=== PATIENT | female | born 1975 | race Caucasian/White ===

== ENCOUNTER 2017-01-10 14:29 | Emergency (ER) | payer BC ==
--- NOTE | 2017-01-10 15:14 | ERPHSYRPT ---
- History of Present Illness Time Seen by Provider: 01/10/17 15:08 Historian: patient Patient Subjective Stated Complaint: pt states around 1230 she began having right flank pain that has radiated to right pelvis. pt denies any dysuria. Triage Nursing Assessment: pt pink, warm, dry. abdomen soft nontender. pt afebrile. Physician History: The patient is a 40-year-old female with her mother complaining of right sided abdominal pain that began 15 minutes after eating a baked potato that was loaded with "everything" that included sour cream cheese and ham. The pain has been coming in waves. When it first began it was a 10 out of 10. At times it makes her nauseated. She had a bowel movement to see if it would relieve the pain but it did not. She has no history of kidney stones. Last year she had viral hepatitis. Her abdominal surgeries include a tubal ligation. Timing/Duration: today, hour(s) (3) Activities at Onset: none Quality: stabbing Abdominal Pain Onset Location: RUQ, RLQ Pain Radiation: groin Severity of Pain-Max: severe Severity of Pain-Current: moderate Modifying Factors: Improves With: eating (pain began after eating) Associated Symptoms: nausea Previous symptoms: no prior history Allergies/Adverse Reactions: No Known Drug Allergies Allergy (Unverified 01/10/17 14:45) Home Medications: No Reportable Medications [No Reported Medications] 01/10/17 [History] Hx Tetanus, Diphtheria Vaccination/Date Given: Yes (unknown) Hx Influenza Vaccination/Date Given: No Hx Pneumococcal Vaccination/Date Given: No Immunizations Up to Date: Yes - Review of Systems Constitutional: No Fever, No Chills Eyes: No Symptoms Ears, Nose, & Throat: No Symptoms Respiratory: No Cough, No Dyspnea Cardiac: No Chest Pain, No Edema, No Syncope Abdominal/Gastrointestinal: Abdominal Pain, Nausea Genitourinary Symptoms: No Dysuria Musculoskeletal: No Back Pain, No Neck Pain Skin: No Rash Neurological: No Dizziness, No Focal Weakness, No Sensory Changes Psychological: No Symptoms Endocrine: No Symptoms Hematologic/Lymphatic: No Symptoms Immunological/Allergic: No Symptoms All Other Systems: Reviewed and Negative - Past Medical History Pertinent Past Medical History: Yes Other Medical History: viral hepatitis - Past Surgical History Past Surgical History: Yes Female Surgical History: Tubal Ligation Other Surgical History: fatty tumor removal - Social History Smoking Status: Never smoker Exposure to second hand smoke: No Drug Use: none Patient Lives Alone: No - Female History Hx Last Menstrual Period: end nov 2016 - Nursing Vital Signs Nursing Vital Signs: Initial Vital Signs Temperature 99.0 F Temperature Source Oral Pulse Rate 71 Respiratory Rate 18 Blood Pressure [Right Arm] 124/57 Pain Intensity 1 - Physical Exam General Appearance: moderate distress Eye Exam: PERRL/EOMI, eyes nml inspection Ears, Nose, Throat Exam: normal ENT inspection, pharynx normal, moist mucous membranes Neck Exam: normal inspection, non-tender, supple, full range of motion Respiratory Exam: normal breath sounds, lungs clear, No respiratory distress Cardiovascular Exam: regular rate/rhythm, normal heart sounds Gastrointestinal/Abdomen Exam: tenderness (RLQ and RUQ) Pelvic Exam: not done Rectal Exam: not done Back Exam: normal inspection, normal range of motion, No CVA tenderness, No vertebral tenderness Extremity Exam: normal inspection, normal range of motion, pelvis stable Neurologic Exam: alert, oriented x 3, cooperative, normal mood/affect, nml cerebellar function, sensation nml, No motor deficits Skin Exam: normal color, warm, dry SpO2 Interpretation: normal SpO2: 99 Oxygen Delivery: Room Air - CT Exams Abdomen/Pelvis CT Interpretation: Tele-radiologist Report, Other (3 to 4 mm stone in bladder and mild right sided hydronephrosis consistent with recent passagae of stone.) Ordered Tests: Active Orders 24 hr Category Date Time Status IV Insertion STAT Care 01/10/17 15:16 Active ABDOMEN AND PELVIS W/0 CONTRAS [CT] Stat Exams 01/10/17 16:03 Completed CBC W DIFF Stat Lab 01/10/17 15:30 Completed CMP Stat Lab 01/10/17 15:30 Completed HCG QUALITATIVE,SERUM Stat Lab 01/10/17 15:30 Completed LIPASE Stat Lab 01/10/17 15:30 Completed TROPONIN Stat Lab 01/10/17 15:30 Completed UA W/ MICROSCOPIC Stat Lab 01/10/17 15:10 Completed Medication Summary Discontinued Medications Generic Name Dose Route Start Last Admin Trade Name Freq PRN Reason Stop Dose Admin Sodium Chloride 1,000 mls @ 999 mls/hr 01/10/17 15:16 01/10/17 15:25 Sodium Chloride 0.9% 1000 Ml IV 01/10/17 16:16 999 mls/hr .Q1H1M STA Administration Sodium Chloride Confirm 01/10/17 15:22 Sodium Chloride 0.9% 1000 Ml Administered 01/10/17 15:23 Dose 1,000 mls @ ud .ROUTE .STK-MED ONE Ketorolac Tromethamine 30 mg 01/10/17 15:16 01/10/17 15:25 Toradol 30 Mg Injection IV 01/10/17 15:17 30 mg STAT ONE Administration Ketorolac Tromethamine Confirm 01/10/17 15:22 Toradol 30 Mg Injection Administered 01/10/17 15:23 Dose 30 mg .ROUTE .STK-MED ONE Ondansetron HCl 4 mg 01/10/17 15:16 01/10/17 15:25 Zofran 4 Mg/2 Ml Vial IV 01/10/17 15: 4 mg STAT ONE Administration Ondansetron HCl Confirm 01/10/17 15:22 Zofran 4 Mg/2 Ml Vial Administered 01/10/17 15:23 Dose 4 mg .ROUTE .STK-MED ONE Lab/Rad Data: Laboratory Result Diagrams 01/10/17 15:30 01/10/17 15:30 Laboratory Results 01/10/17 01/10/17 01/10/17 Range/Units 15:30 15:30 15:30 WBC 7.8 (4.0-10.5) K/mm3 RBC 3.77 L (4.1-5.4) M/mm3 Hgb 12.0 (12.0-16.0) gm/dl Hct 36.1 (35-47) % MCV 95.8 (78-100) fl MCH 31.8 (26-32) pg MCHC 33.2 (32-36) g/dl RDW 12.5 (11.5-14.0) % Plt Count 315 (150-450) K/mm3 MPV 10.0 H (6-9.5) fl Gran % 61.9 (36.0-66.0) % Lymphocytes % 27.1 (24.0-44.0) % Monocytes % 8.1 (0.0-12.0) % Eosinophils % 2.8 (0.00-5.0) % Basophils % 0.1 (0.0-0.4) % Basophils # 0.01 (0-0.4) Sodium 139 (136-145) mEq/L Potassium 3.8 (3.5-5.1) mEq/L Chloride 104 (98-107) mEq/L Carbon Dioxide 27.4 (21-32) mEq/L Anion Gap 11.7 (5-15) MEQ/L BUN 17 (9-20) mg/dL Creatinine 0.93 (0.55-1.30) mg/dl Estimated GFR > 60 ML/MIN Glucose 98 (70-110) MG/DL Calcium 8.6 (8.5-10.1) mg/dL Total Bilirubin 0.3 (0.2-1.0) mg/dL AST 25 (15-37) U/L ALT 49 (12-78) U/L Alkaline Phosphatase 35 L (46-116) U/L Troponin I < 0.017 (0.000-0.056) ng/ml Serum Total Protein 7.3 (6.4-8.2) gm/dL Albumin 3.7 (3.4-5.0) g/dL Lipase 174 (73-393) U/L Serum , Qual NEGATIVE (Negative) Ur Collection Type Urine Color (YELLOW) Urine Appearance (CLEAR) Urine pH (5-6) Ur Specific [place] (1.005-1.025) Urine Protein (Negative) Urine Glucose (UA) (NEGATIVE) mg/dL Urine Ketones (NEGATIVE) Urine Nitrite (NEGATIVE) Urine Bilirubin (NEGATIVE) Urine Urobilinogen (0-1) mg/dL Urine WBC (Auto) (NEGATIVE) Urine RBC (Auto) (0-5) Addy/ul Urine Microscopic RBC (0-2) /HPF Ur Epithelial Cells (FEW) /HPF Urine Bacteria (NEGATIVE) /HPF Urine Mucus (NEGATIVE) /HPF Specimen Received 01/10/17 Range/Units 15:10 WBC (4.0-10.5) K/mm3 RBC (4.1-5.4) M/mm3 Hgb (12.0-16.0) gm/dl Hct (35-47) % MCV (78-100) fl MCH (26-32) pg MCHC (32-36) g/dl RDW (11.5-14.0) % Plt Count (150-450) K/mm3 MPV (6-9.5) fl Gran % (36.0-66.0) % Lymphocytes % (24.0-44.0) % Monocytes % (0.0-12.0) % Eosinophils % (0.00-5.0) % Basophils % (0.0-0.4) % Basophils # (0-0.4) Sodium (136-145) mEq/L Potassium (3.5-5.1) mEq/L Chloride (98-107) mEq/L Carbon Dioxide (21-32) mEq/L Anion Gap (5-15) MEQ/L BUN (9-20) mg/dL Creatinine (0.55-1.30) mg/dl Estimated GFR ML/MIN Glucose (70-110) MG/DL Calcium (8.5-10.1) mg/dL Total Bilirubin (0.2-1.0) mg/dL AST (15-37) U/L ALT (12-78) U/L Alkaline Phosphatase (46-116) U/L Troponin I (0.000-0.056) ng/ml Serum Total Protein (6.4-8.2) gm/dL Albumin (3.4-5.0) g/dL Lipase (73-393) U/L Serum , Qual (Negative) Ur Collection Type VOID Urine Color YELLOW (YELLOW) Urine Appearance SLIGHTLY CLOUDY (CLEAR) Urine pH 6.5 (5-6) Ur Specific [place] 1.025 (1.005-1.025) Urine Protein NEGATIVE (Negative) Urine Glucose (UA) NEGATIVE (NEGATIVE) mg/dL Urine Ketones NEGATIVE (NEGATIVE) Urine Nitrite NEGATIVE (NEGATIVE) Urine Bilirubin NEGATIVE (NEGATIVE) Urine Urobilinogen 0.2 (0-1) mg/dL Urine WBC (Auto) NEGATIVE (NEGATIVE) Urine RBC (Auto) SMALL (0-5) Addy/ul Urine Microscopic RBC 10-15 (0-2) /HPF Ur Epithelial Cells FEW (FEW) /HPF Urine Bacteria FEW (NEGATIVE) /HPF Urine Mucus SLIGHT (NEGATIVE) /HPF Specimen Received 01/10/17 1510 - Progress Progress: improved Progress Note: 01/10/17 17:01 Pt feeling much better. Counseled pt/family regarding: lab results, diagnosis, need for follow-up, rad results - Departure Time of Disposition: 17:02 Departure Disposition: Home Clinical Impression: Nephrolithiasis Condition: Stable Critical Care Time: No Additional Instructions: Strain urine and collect stone. Take stone to PMD for evaluation.
[2017-01-10] MEDS ORDERED: Sodium Chloride 0.9% 1000 ML 1,000 ML IV STA (15:16)
[2017-01-10] MEDS ORDERED: TORAdol 30 mg Injection IV ONE (15:16)
[2017-01-10] MEDS ORDERED: Zofran 4 MG/2 ML VIAL IV ONE (15:16)
[2017-01-10 15:22] LABS: Collection Type VOID
[2017-01-10] MEDS ORDERED: Zofran 4 MG/2 ML VIAL ONE (15:22)
[2017-01-10] MEDS ORDERED: TORAdol 30 mg Injection ONE (15:22)
[2017-01-10] MEDS ORDERED: Sodium Chloride 0.9% 1000 ML 1,000 ML ONE (15:22)
[2017-01-10 15:23] LABS: COMPLETE URINE MICROSCOPIC? YES; Ph 6.5 (5-6)
[2017-01-10 15:47] LABS: BASOPHIL % 0.1 % (0.0-0.4); Eosinophil % 2.8 % (0.00-5.0); Granulocytes % 61.9 % (36.0-66.0); Lymphocytes % 27.1 % (24.0-44.0); Mean Cell Volume 95.8 fl (78-100); Mean Corpuscular Hemoglobin 31.8 pg (26-32); Monocytes % 8.1 % (0.0-12.0); Platelet Count 315 K/mm3 (150-450); Red Blood Count 3.77 M/mm3 (4.1-5.4); Red Cell Distribution Width 12.5 % (11.5-14.0); White Blood Count 7.8 K/mm3 (4.0-10.5)
[2017-01-10 15:53] LABS: Bacteria FEW /HPF (NEGATIVE); Epithelial Cells FEW /HPF (FEW); Mucus SLIGHT /HPF (NEGATIVE)
[2017-01-10 16:21] LABS: ALBUMIN 3.7 g/dL (3.4-5.0); ALKALINE PHOSPHATASE 35 U/L (46-116); ANION GAP 11.7 MEQ/L (5-15); BILIRUBIN,TOTAL 0.3 mg/dL (0.2-1.0); BLOOD UREA NITROGEN 17 mg/dL (9-20); CHLORIDE 104 mEq/L (98-107); Carbon Dioxide 27.4 mEq/L (21-32); Glucose 98 MG/DL (70-110); LIPASE 174 U/L (73-393); Potassium 3.8 mEq/L (3.5-5.1); SGOT/AST 25 U/L (15-37); SGPT/ALT 49 U/L (12-78); SODIUM 139 mEq/L (136-145); Total Protein 7.3 gm/dL (6.4-8.2)
[2017-01-10 16:22] LABS: TROPONIN < 0.017 ng/ml (0.000-0.056)
--- NOTE | 2017-01-10 16:48 | XRAY ---
Indication: Right abdominal/flank pain. Multiple contiguous axial images obtained through the abdomen and pelvis without contrast using renal stone protocol. Comparison: None Lung bases are clear. Heart is not enlarged. 3-4 mm calculus seen in the right posterior urinary bladder. Right ureter is slightly prominent and there is moderate right-sided hydronephrosis consistent with recent passage of said calculus. No calculus or evidence for obstructive uropathy in the left system. Multiple bilateral pelvic phleboliths. No free fluid/air. Noncontrasted stomach and bowel loops appear nonobstructed. Normal appendix. Remaining liver, gallbladder, pancreas, spleen, adrenal glands, uterus, bladder, and aorta appear unremarkable for noncontrast exam. Osseous structures intact. Impression: 3-4 mm urinary bladder calculus. Right-sided hydronephrosis and right ureteral prominence from recent passage of said calculus. CTDI 23.23
[2017-01-10 17:24] VITALS: BP 130/80; PULSE 76; O2SAT 96
== END 2017-01-10 17:24 | disposition home or self-care (01) ==
LOC: ED 14:29
DX: N20.0 Calculus of kidney (principal); R10.31 Right lower quadrant pain; R10.11 Right upper quadrant pain
CPT/HCPCS: 36000; 36415; 74176; 80053; 81000; 83690; 84484; 84703; 85025; 96360; 96374; 96375; 99283; 99284; J1885; J2405